=== PATIENT | male | born 1970 | race Caucasian/White ===

== ENCOUNTER → 2019-04-04 | Outpatient (CLI) | payer BC ==
--- NOTE | 2019-04-04 16:13 | PCVCIMAG ---
APPROVED REPORT Study performed: 04/04/2019 14:50:23 EXAM: Comprehensive 2D, Doppler, and color-flow Echocardiogram Patient Location: Echo lab Status: routine BSA: 2.62 HR: 97 bpmBP: 110/82 mmHg Rhythm: Tachycardia Other Information Study Quality: Adequate Risk Factors: Cardiac Risk Factors: HTN Indications Dyspnea 2D Dimensions IVSd: 16.48 (7-11mm) LVDd: 47.39 mm PWd: 13.34 (7-11mm) LVDs: 37.66 (25-40mm) Left Atrium: 40.51 (27-40mm) Aortic Root: 35.42 mm LV Single Plane 4CH: 50.33 % LV Single Plane 2CH: 55.27 % Biplane EF: 52.8 % Volumes Left Atrial Volume (Systole) Single Plane 4CH: 74.35 mLSingle Plane 2CH: 84.04 mL LA ESV Index: 32.00 mL/m2 Aortic Valve AoV Peak Hernandez.: 1.35 m/s AO Peak Gr.: 7.25 mmHgLVOT Max P.46 mmHg LVOT Max V: 1.17 m/s Mitral Valve E/A Ratio: 0.8 MV Decel. Time: 324.66 ms MV E Max Hernandez.: 0.41 m/s MV A Hernandez.: 0.50 m/s IVRT: 134.95 ms Pulmonary Valve PV Peak Hernandez.: 0.89 m/sPV Peak Gr.: 3.14 mmHg Pulmonary Vein P Vein S: 0.31 m/sP Vein A: 0.34 m/s P Vein D: 0.44 m/sP Vein A Dur.: 131.5 msec P Vein S/D Ratio: 0.70 Tricuspid Valve TR Peak Hernandez.: 2.73 m/s TR Peak Gr.: 29.87 mmHg Left Ventricle The left ventricle is normal size. There is normal LV segmental wall motion. Mild concentric left ventricular hypertrophy. Left ventricular systolic function is normal. The left ventricular ejection fraction is within the normal range. LVEF is 50-55%. Grade I - abnormal relaxation pattern. Right Ventricle The right ventricle is normal size. The right ventricular systolic function is normal. Atria The left atrium size is normal. The right atrium size is normal. Aortic Valve The aortic valve is normal in structure. No aortic regurgitation is present. There is no aortic valvular stenosis. Mitral Valve The mitral valve is normal in structure. Trace mitral regurgitation. No evidence of mitral valve stenosis. Tricuspid Valve The tricuspid valve is normal in structure. Mild tricuspid regurgitation with PAP of 37 mmHg. Pulmonic Valve The pulmonary valve is normal in structure. Trace pulmonic regurgitation. Great Vessels The aortic root is normal in size. IVC is normal in size and collapses >50% with inspiration. Pericardium There is no pericardial effusion. <Conclusion> The left ventricle is normal size. Mild concentric left ventricular hypertrophy. Left ventricular systolic function is normal. Grade I - abnormal relaxation pattern. The right ventricle is normal size. The left atrium size is normal. The aortic valve is normal in structure. Trace mitral regurgitation. Mild tricuspid regurgitation with PAP of 37 mmHg.
--- NOTE | 2019-04-04 16:16 | PCVCIMAG ---
APPROVED REPORT Study performed: 04/04/2019 15:20:14 Exam: Stress Echocardiogram Indication: Dyspnea, obesity, htn, tobacco use Patient Location: Echo lab Stress Nurse: Georgie Larry RN Status: routine Ht: 6 ft 0 in HR: 113 bpm BP: 110/82 mmHg Rhythm: Tachycardia Procedure The patient underwent an Exercise Stress Test using the Baljit Protocol. Blood pressure, heart rate, and EKG were monitored. An Echocardiogram was performed by costume technician in four stages in quad fashion. At peak stress, four selected images were obtained and placed side by side with resting images for comparison. Stress Test Details Stress Test: Exercise stress testing was performed using a Baljit protocol. HR Resting HR: 113 bpmMax Heart Rate (APMHR): 172 bpm Max HR Achieved: 146 bpmTarget HR (85% APMHR): 146 bpm % of APMHR: 84 Recovery HR: 116 bpm HR response to stress: Normal HR response to stress BP Resting BP: 110/82 mmHg Max BP: 148/76 mmHg Recovery BP: 110/62 mmHg BP response to stress: Normal blood pressure response to stress. ECG Resting ECG: Sinus Tachycardia Stress ECG: Sinus Rhythm ST Change: Non-ischemic Arrhythmia: None Recovery ECG: Sinus Tachycardia Recovery ST Change: Normal Recovery Arrhythmia: None Clinical Reason for Termination: Limiting Dyspnea, Maximal effort Stress Symptoms: Dyspnea Exercise duration: 5 min 8 sec Highest Stage Achieved: Stage 2: 2.5 mph at 12% grade. Exercise capacity: 7 METs Overall Exercise Capacity for Age: Poor Scale: Sedentary Angina Score: None Pre-Stress Echo The resting Echocardiogram showed normal left ventricular contractility with an estimated Ejection Fraction of about >55%. The resting echocardiogram demonstrated normal wall motion in all wall segments. Normal wall motion in all segments on baseline images. Post-Stress Echo The stress Echocardiogram showed normal left ventricular contractility with an estimated Ejection Fraction of about 65%. Compared to rest, there were no stress-induced wall motion abnormalities. Normal augmentation of wall motion in all segments on post stress images. Clinical No clinical or ECG evidence for ischemia. Conclusion Clinical Response: Non-ischemic Exercise Capacity: Average Stress ECG Response: Non-ischemic Stress Echo Images: Non-ischemic Other Information Study Quality: Adequate
== END | disposition home or self-care (01) ==
LOC: PCVCIMAG 14:54
PROVIDERS: ATTEND Internal Medicine Cardiovascular Disease
DX: I36.1 Nonrheumatic tricuspid (valve) insufficiency (principal); I11.9 Hypertensive heart disease without heart failure; Z87.891 Personal history of nicotine dependence
CPT/HCPCS: 93306; 93351